=== PATIENT | male | born 1970 | race African-American/Black ===

== ENCOUNTER 2020-10-18 07:57 | Day surgery (SDC) | payer OTHER ==
[~2020-10-18] VITALS: Ht 167.6 cm; Wt 76.7 kg
[2020-10-18 07:32] VITALS: BP 129/92
[2020-10-18 08:01] VITALS: BP 129/92
[2020-10-18 13:16] VITALS: BP 126/81
== END 2020-10-18 12:20 ==
LOC: DS 07:57 → GI 09:00 → OR 09:00 → DS 12:20
PROVIDERS: ATTEND Internal Medicine Gastroenterology
DX: R19.5 Other fecal abnormalities (principal)
CPT/HCPCS: 45378; J1200; J1610; J2250; J2310; J3010; J3490